=== PATIENT | female | born 1980 | race Caucasian/White ===

== ENCOUNTER 2024-04-27 20:47 | Emergency (ER) | payer BC ==
[~2024-04-27] VITALS: Ht 165.1 cm; Wt 88.2 kg
[2024-04-27 20:51] VITALS: BP 149/97; PULSE 90; RESP 19; TEMP 97.6; O2SAT 98
[2024-04-27 22:50] LABS: BASOPHILS % (AUTO) 0.9 % (0.0-2.0); EOSINOPHILS # (AUTO) 0.2 K/uL (0-0.4); EOSINOPHILS % (AUTO) 4.9 % (0.0-4.0); HEMATOCRIT 32.6 % (36-48); HEMOGLOBIN 10.9 g/dL (12.0-16.0); LYMPHOCYTES # (AUTO) 0.7 K/uL (2.5-16.5); LYMPHOCYTES % (AUTO) 16.5 % (20.5-51.1); MEAN CORPUSCULAR HEMOGLOBIN 30 pg (27-31); MEAN CORPUSCULAR HGB CONC 33 g/dL (33-37); MONOCYTES # (AUTO) 0.3 K/uL (0.8-1.0); MONOCYTES % (AUTO) 7.5 % (1.7-9.3); NEUTROPHILS # (AUTO) 2.9 K/uL (1.8-7.7); NEUTROPHILS % (AUTO) 70.2 % (42.2-75.2); PLATELET COUNT (AUTO) 277 K/uL (140-450); RED BLOOD CELL COUNT(AUTO) 3.66 MIL/uL (4.20-5.40); RED CELL DISTRIBUTION WIDTH 14.8 % (11.6-13.7); WHITE BLOOD COUNT (AUTO) 4.1 K/uL (4.8-10.8)
[2024-04-27 22:58] LABS: APPEARANCE,URINE CLEAR (CLEAR); BILIRUBIN,URINE NEGATIVE (NEGATIVE); BLOOD, URINE NEGATIVE (NEGATIVE); COLOR,URINE YELLOW (YELLOW); LEUKOCYTE ESTERASE ,URINE NEGATIVE (NEGATIVE); NITRITE, URINE NEGATIVE (NEGATIVE); PROTEIN,URINE NEGATIVE (NEGATIVE); UGLUCOSE NEGATIVE (NEGATIVE); UROBILINOGEN,URINE 0.2 EU/dL (0.2 - 1)
[2024-04-27 23:02] LABS: ANION GAP 11.1 (8-16); CALCIUM 8.3 mg/dL (8.5-10.1); CREATININE 0.7 mg/dL (0.6-1.3); POTASSIUM 4.1 mmol/L (3.5-5.1)
[2024-04-28] MEDS ORDERED: SYN.075 PO (00:38)
[2024-04-28 00:46] VITALS: BP 113/65; PULSE 85; RESP 18; TEMP 97.6; O2SAT 99
== END 2024-04-28 00:48 | disposition home or self-care (01) ==
LOC: MED 20:47
DX: R53.1 Weakness (principal); E03.9 Hypothyroidism, unspecified; Z79.899 Other long term (current) drug therapy
CPT/HCPCS: 36415; 80048; 81003; 81025; 83880; 84443; 85025; 85651; 93005; 99284

== ENCOUNTER 2024-05-31 18:05 | Emergency (ER) | payer BC ==
[~2024-05-31] VITALS: Ht 162.6 cm; Wt 86.6 kg
[~2024-05-31 18:05] MED LIST: SYN.075 PO
[2024-05-31 18:17] VITALS: BP 129/78; PULSE 87; RESP 18; TEMP 97.2; O2SAT 95
[2024-05-31] MEDS: LIDOCAINE 5% 1 EA PATCH TP ONE (19:14)
[2024-05-31] MEDS: KETOROLAC 30 MG/ML VIAL IM ONE (19:18)
[2024-05-31 19:29] LABS: APPEARANCE,URINE CLEAR (CLEAR); BILIRUBIN,URINE NEGATIVE (NEGATIVE); BLOOD, URINE NEGATIVE (NEGATIVE); COLOR,URINE YELLOW (YELLOW); LEUKOCYTE ESTERASE ,URINE NEGATIVE (NEGATIVE); NITRITE, URINE NEGATIVE (NEGATIVE); PROTEIN,URINE NEGATIVE (NEGATIVE); UGLUCOSE NEGATIVE (NEGATIVE); UROBILINOGEN,URINE 0.2 EU/dL (0.2 - 1)
[2024-05-31] MEDS ORDERED: KETO10TA2 PO (19:55)
[2024-05-31] MEDS ORDERED: METH-1681 PO (19:55)
[2024-05-31] MEDS ORDERED: METH4TAB1 PO (19:55)
[2024-05-31] MEDS ORDERED: LID5T TP (19:55)
== END 2024-05-31 20:00 | disposition home or self-care (01) ==
LOC: MED 18:05
DX: S39.012A Strain of muscle, fascia and tendon of lower back, initial encounter (principal); E03.9 Hypothyroidism, unspecified; R03.0 Elevated blood-pressure reading, without diagnosis of hypertension; Z79.899 Other long term (current) drug therapy; Z88.0 Allergy status to penicillin; X58.XXXA Exposure to other specified factors, initial encounter; Y93.89 Activity, other specified; Y92.89 Other specified places as the place of occurrence of the external cause; Y99.8 Other external cause status
CPT/HCPCS: 72100; 81003; 81025; 96372; 99284; J1885